=== PATIENT | female | born 1955 | race Caucasian/White ===

== ENCOUNTER 2017-08-23 08:08 | Emergency (ER) | payer BC, OTHER ==
[2017-08-23 08:21] VITALS: BP 124/58; PULSE 89; TEMP 97.8; BMI 23.8
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
[2017-08-23] MEDS ORDERED: ACETAMINOPHEN 325 MG TABLET (FP) PO ONE (08:53)
[2017-08-23] MEDS ORDERED: ACETAMINOPHEN 325 MG TABLET (FP) ONE (08:54)
== END 2017-08-23 11:12 | disposition home or self-care (01) ==
LOC: JERFT 08:08
PROC: 2W3JX1Z Immobilization of Right Finger using Splint (ICD-10-PCS; principal; 2017-08-23)
DX: S63.632A Sprain of interphalangeal joint of right middle finger, initial encounter (principal); M20.011 Mallet finger of right finger(s); X50.0XXA Overexertion from strenuous movement or load, initial encounter; Y93.89 Activity, other specified; Y92.218 Other school as the place of occurrence of the external cause; Y99.0 Civilian activity done for income or pay
CPT/HCPCS: 73130-TC-RT-FY; 99281-25

== ENCOUNTER 2017-10-05 10:46 | Emergency (ER) | payer BC ==
[2017-10-05 11:05] VITALS: BP 102/65; PULSE 85; TEMP 98.5; BMI 21.9
--- NOTE | 2017-10-05 12:32 | PDOC ---
History of Present Illness - General Chief Complaint: Rash Stated Complaint: rash ? scabies Time Seen by Provider: 10/05/17 12:04 History Source: Patient - History of Present Illness Timing/Duration: reports: other Location: reports: extremities, other (neck) Respiratory Risk Factors: reports: exposure to illness Past History - Past Medical History Allergies/Adverse Reactions: Allergies Allergy/AdvReac Type Severity Reaction Status Date / Time No Known Allergies Allergy Verified 10/05/17 11:01 Home Medications: Ambulatory Orders Permethrin 5% Topical Cream [Elimite -] 1 applic TP ONCE #1 tube 10/05/17 COPD: No DVT: No Hypercholesterolemia: Yes - Suicide/Smoking/Psychosocial Hx Smoking History: Never smoked Have you smoked in the past 12 months: Yes Number of Cigarettes Smoked Daily: 20 Information on smoking cessation initiated: Yes 'Breaking Loose' booklet given: 10/05/17 Hx Alcohol Use: No Drug/Substance Use Hx: No Substance Use Type: None Review of Systems - Review of Systems Constitutional: No: Chills, Fever Integumentary: Yes: Pruritus, Rash *Physical Exam - Vital Signs Last Vital Signs Temp Pulse Resp BP Pulse Ox 98.5 F 85 18 102/65 100 10/05/17 11:03 10/05/17 11:03 10/05/17 11:03 10/05/17 11:03 10/05/17 11:03 - Physical Exam General Appearance: Yes: Appropriately Dressed. 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 see exam Scabies -Dc w/ permethrin, to take OTC antihistamine as needed -Reason to return d/w pt -Contact precautions given -Instructed to wash bedding/clothes in hot water *DC/Admit/Observation/Transfer Diagnosis at time of Disposition: Scabies - Discharge Dispostion Disposition: HOME Condition at time of disposition: Good - Prescriptions Prescriptions: Permethrin 5% Topical Cream [Elimite -] 1 applic TP ONCE #1 tube - Referrals Referrals: Kelly Petit MD [Primary Care Provider] - - Patient Instructions Printed Discharge Instructions: DI for Scabies Additional Instructions: You were treated for scabies with permethrin Permethrin cream should be thoroughly massaged into skin from the neck to the soles of her feet, including areas under the fingernails and toenails. Cream should be kept in place for 8-14 hours and then removed by washing. A second application can be applied in 1-2 weeks if necessary but usually a single application is curative You can return to work after first application is applied Wash all bedding and clothes worn during infection, in hot water - Post Discharge Activity Forms/Work/School Notes: Back to Work
== END 2017-10-05 12:52 | disposition home or self-care (01) ==
LOC: JERFT 10:46
DX: B86 Scabies (principal)
CPT/HCPCS: 99281-25

== ENCOUNTER 2017-12-18 08:01 | Day surgery (SDC) | payer BC, OTHER ==
[2017-12-17 10:53] VITALS: BMI 24.4
--- NOTE | 2017-12-18 10:20 | HP ---
[facility] - Chief Complaint Chief Complaint: Right shoulder/back mass History Source: Patient Limitations to Obtaining History: No Limitations - Past Medical History Allergies/Adverse Reactions: Allergies Allergy/AdvReac Type Severity Reaction Status Date / Time No Known Allergies Allergy Verified 12/18/17 08:50 - Current Medications Current Medications: Home Medications Medication Instructions Recorded Permethrin 5% Topical Cream 1 applic TP ONCE #1 tube 10/05/17 [Elimite -] Docusate Sodium [Colace -] 100 mg PO TID #90 capsule 12/18/17 Oxycodone HCl/Acetaminophen 1 - 2 tab PO Q6H #28 tab MDD 4 12/18/17 [Percocet 5-325 mg Tablet] Satellite Physical Exam - Physical Examination Vital Signs: Vital Signs Period Temp Pulse Resp BP Sys/Muhammad Pulse Ox Last 24 Hr 97.9 F 80 18 105/68 97 Lung: Normal air movement Heart: Regular rate & rhythm Abdomen: Soft, No tenderness Neurological: Alert, Oriented Satellite Impression/Plan - Impression/Plan Impression: Right shoulder/back mass. Mobile, nontender, no drainage, no erythema Operative Procedure: Excision of right back/shoulder mass Date to be Performed: 12/18/17
[2017-12-18] MEDS ORDERED: PERMETHRIN 5% TOPICAL CREAM 60 GM TUBE TP SCH (10:30)
[2017-12-18] MEDS ORDERED: LIDOCAINE 1%/EPI 1:100000 (20 ML MULTI DOSE VIAL) ONE (11:22)
[2017-12-18] MEDS ORDERED: PROPOFOL 20 ML ONE ×2 (11:48)
[2017-12-18] MEDS ORDERED: SUCCINYLCHOLINE CHLORIDE 200 MG/10 ML VIAL ONE (11:49)
[2017-12-18] MEDS ORDERED: MIDAZOLAM HCL 2 MG/2 ML SINGLE DOSE VIAL ONE (11:49)
[2017-12-18] MEDS ORDERED: KETAMINE HCL 200 MG/20 ML VIAL ONE (11:49)
[2017-12-18] MEDS ORDERED: ceFAZolin SODIUM 1 GM VIAL IVPB ONE (12:00)
[2017-12-18] MEDS ORDERED: ceFAZolin SODIUM 1 GM VIAL ONE (12:00)
[2017-12-18] MEDS ORDERED: DEXAMETHASONE SOD PHOSPHATE 4 MG/1 ML VIAL ONE (12:00)
[2017-12-18] MEDS ORDERED: LIDOCAINE 1%/EPI 1:100000 (20 ML MULTI DOSE VIAL) IJ ONE (12:02)
--- NOTE | 2017-12-18 12:32 | OP ---
Operative Note - Note: Operative Date: 12/18/17 Pre-Operative Diagnosis: Right back mass/shoulder mass Operation: Excision of right shoulder/back mass. 5cm x 5cm Post-Operative Diagnosis: Same as Pre-op Surgeon: Tian Emerson Anesthesia: General Specimens Removed: Right shoulder/back mass Estimated Blood Loss (mls): 5 Operative Report Dictated: Yes
[2017-12-18] MEDS ORDERED: ONDANSETRON 4 MG/2 ML VIAL IVPUSH PRN (12:59)
[2017-12-18] MEDS ORDERED: oxyCODONE HCL 5 MG TABLET PO PRN (12:59)
[2017-12-18] MEDS ORDERED: LACTATED RINGERS SOLUTION 1,000 ML IV SCH (13:00)
[2017-12-18 13:31] VITALS: TEMP 98
[2017-12-18 14:34] VITALS: BP 107/68; PULSE 94
--- NOTE | 2017-12-18 15:30 | OP ---
DATE OF OPERATION: 12/18/2017 SURGEON: Tian Emerson MD PREOPERATIVE DIAGNOSIS: Right back/shoulder mass. POSTOPERATIVE DIAGNOSIS: Right back/shoulder mass. SIZE OF MASS: Approximately 5 cm x 5 cm in size. ESTIMATED BLOOD LOSS: 5 mL. DRAINS: None. ANESTHESIA: MAC/local. PROCEDURE: Excision of right shoulder/back mass. REASON FOR PROCEDURE: This 62-year-old female presents for a right shoulder/back mass. Ultrasound was performed in the office, demonstrating likely fatty component consistent with lipoma. The risks and benefits of excision of the mass were explained. These included bleeding, infection, recurrence, wound infection, nerve injury, vessel injury, injury to the surrounding muscle tissue, WA, DVT, PE, similar complications. She understood and signed informed consent. DESCRIPTION OF PROCEDURE: The patient was placed in the left lateral decubitus position. The area was prepped and draped in sterile fashion. Timeout was performed. Lidocaine with epinephrine was injected and a transverse incision was made with a 10 blade scalpel. Skin and subcutaneous tissue were dissected down to the level of the fascia. The fascia was opened and the mass noted. This was noted to be a lobulated mass likely consistent with lipoma. The entirety of the mass was fully dissected circumferentially and excised. Hemostasis was achieved and irrigation was performed until dry. The deep tissue was closed using 3-0 Vicryl suture and the skin closed using 4-0 Biosyn. Sterile dressings were applied. The patient tolerated the procedure well, transferred to recovery room in stable condition. Mis ARROYO/[id number]
--- NOTE | 2017-12-19 15:06 | PATH ---
Surgical Pathology Report Patient Name: JANES DEE [facility]. Rec. #: [id number] /Age/Gender: 1955 (Age: 62) / F Account: [id number] Location: [facility] SURGICAL Taken: 12/18/2017 Received: 12/18/2017 Reported: 12/19/2017 Physicians: Tian Emerson M.D. Specimen(s) Received MASS OF RIGHT SHOULDER Clinical History Right shoulder mass Final Diagnosis SHOULDER, RIGHT, MASS, EXCISION: MATURE FIBROADIPOSE TISSUE CONSISTENT WITH LIPOMA. Electronically Signed Mili Chapman M.D. Gross Description Received in formalin labeled "mass right shoulder," is a 5.2 x 4.5 x 2.0 cm yellow portion of lobulated adipose tissue. Sectioning reveals homogeneous yellow, smooth fat. No areas of hemorrhage or necrosis are identified. [employer] sections are submitted in 2 cassettes. /12/18/2017 saudi/12/18/2017
== END 2017-12-18 14:30 | disposition home or self-care (01) ==
LOC: JASU-SURG 08:01
PROVIDERS: ATTEND Surgery
PROC: 0JB70ZZ Excision of Back Subcutaneous Tissue and Fascia, Open Approach (ICD-10-PCS; principal; 2017-12-18 10:30)
DX: D48.1 Neoplasm of uncertain behavior of connective and other soft tissue (principal)
CPT/HCPCS: 88304-TC